=== PATIENT | male | born 1960 | race American Indian/Alaskan Native ===

== ENCOUNTER 2016-07-20 20:58 | Observation (INO) | payer MEDICARE, OTHER, MEDICAID ==
[2016-07-20 21:01] VITALS: BMI 31.6
--- NOTE | 2016-07-20 21:33 | C.PDOC ---
History Of Present Illness 55 year old male brought to the ED via EMS due to public intoxication. He c/o chronic leg pain - denies falls/injuries. Time Seen by Provider: 07/20/16 21:15 Chief Complaint (Nursing): Substance Abuse History Per: Patient, EMS History/Exam Limitations: intoxication Onset/Duration Of Symptoms: Hrs Current Symptoms Are (Timing): Still Present Suicide/Self Injury Attempted (Context): None Modifying Factor(s): Alcohol Past Medical History Reviewed: Historical Data, Nursing Documentation, Vital Signs Vital Signs: Last Vital Signs Temp 97.2 F L 07/20/16 21:08 Pulse 71 07/20/16 21:08 Resp 16 07/20/16 21:08 BP 103/69 07/20/16 21:08 Pulse Ox 100 07/20/16 21:38 - Medical History PMH: Asthma, Back Problems, Depression, Fractures (spine fracture 2002), Gastritis, HTN, Hypercholesterolemia, Chronic Pain Surgical History: Back Surgery - [facility] Procedures ALCOHOL DETOXIFICATION (07/24/13) INFLUENZA VACCINATION (02/08/14) INJECT/INFUSE NEC (02/01/14) OTHER GROUP THERAPY (02/08/14) PSYCHIAT DRUG THERAP NEC (02/08/14) VACCINATION NEC (02/08/14) Family History: States: No Known Family Hx - Social History Hx Tobacco Use: No Hx Alcohol Use: Yes Hx Substance Use: No - Immunization History Hx Tetanus Toxoid Vaccination: No Hx Influenza Vaccination: No Hx Pneumococcal Vaccination: No Review Of Systems Except As Marked, All Systems Reviewed And Found Negative. Musculoskeletal: Positive for: Leg Pain (chronic) Psych: Positive for: Other (alcohol intoxication) Physical Exam - Physical Exam Appears: Non-toxic, No Acute Distress, Other (+AOB) Skin: Normal Color, Warm, Dry Head: Atraumatic, Normacephalic, No Abrasion, No Laceration Oral Mucosa: Moist Cardiovascular: Rhythm Regular Respiratory: Normal Breath Sounds, No Rales, No Rhonchi, No Wheezing Extremity: Normal ROM, No Tenderness, No Deformity, No Swelling Neurological/Psych: Other (awake, alert, intoxicated, moving all 4 extremities spontaneously) ED Course And Treatment O2 Sat by Pulse Oximetry: 100 (Room air) Pulse Ox Interpretation: Normal Progress Note: Accucheck ordered and reviewed. Patient placed in ED pending sobriety. 12:00- Patient sleeping comfortably, arousable to vebal stimuli. ED OBSERVATION Date of observation admission: 07/20/16 Time of observation admission: 21:27 - Observation admission statement Patient is being placed in observation because:: Acute alcohol intoxication. - Goals of Observation Goals of observation are:: Sobriety. - Progress Note Progress Note: 07/20/16 21:37 Vitals stable. patient resting. 07/20/16 23:47 Vitals stable and patient is resting. Disposition - Disposition Disposition Time: 01:00 Condition: STABLE - Clinical Impression Clinical Impression: Alcohol intoxication - Scribe Statement The provider has reviewed the documentation as recorded by the Scribe Cullen Plaza. Provider Attestation: All medical record entries made by the Scribe were at my direction and personally dictated by me. I have reviewed the chart and agree that the record accurately reflects my personal performance of the history, physical exam, medical decision making, and the department course for this patient. I have also personally directed, reviewed, and agree with the discharge instructions and disposition. Physician Patient Turnover Patient Signed Over To: Toni Kincaid Handoff Comments: pending reassessment, sobriety
[2016-07-21 05:55] VITALS: BP 122/69; PULSE 79; RESP 18; TEMP 98.2; O2SAT 98
== END 2016-07-21 05:51 | disposition home or self-care (01) ==
LOC: C.ER 20:58 → C.9OBSV 21:27
PROVIDERS: ADMIT Emergency Medicine; ATTEND Emergency Medicine
DX: F10.129 Alcohol abuse with intoxication, unspecified (principal); F10.120 Alcohol abuse with intoxication, uncomplicated; Y90.9 Presence of alcohol in blood, level not specified
CPT/HCPCS: 82948; 99285; G0378